=== PATIENT | female | born 1955 | race Caucasian/White ===

== ENCOUNTER 2017-11-18 16:14 | Inpatient (IN) | payer OTHER ==
[~2017-11-18] VITALS: Ht 160 cm; Wt 48.3 kg
--- NOTE | 2017-11-18 16:24 | ED GENERAL ADULT ---
History of Present Illness General Chief Complaint: Abdominal Pain/Flank Pain Stated Complaint: ABD. PAIN X 3HRS Source: patient Exam Limitations: no limitations Vital Signs & Intake/Output Vital Signs & Intake/Output Vital Signs Date Time Temp Pulse Resp B/P B/P Pulse O2 O2 Flow FiO2 Mean Ox Delivery Rate 11/18 2237 97.6 62 20 112/80 100 Nasal 2.0L Cannula 11/18 2140 98 21 179/91 98 Nasal Cannula 11/18 1946 66 18 154/97 97 Room Air 11/18 1850 98.3 88 17 189/92 98 11/18 1617 97.1 80 18 158/90 94 Room Air Room Air Allergies Coded Allergies: No Known Allergies (11/18/17) Reconcile Medications Alendronate Sodium 70 MG TABLET 1 TAB PO QMON OSTEOPOROSIS (Reported) in the morning, at least 30 minutes before the first food, beverage, or medication of the day Calcium Carbonate/Vitamin D3 (Calcium 500 + D Tablet) (Unknown Strength) TABLET (Unknown Dose) PO DAILY SUPPLEMENT (Reported) Triage Note: TRIAGE: 62 Y/O FEMALE PRESENTS C/O 12/22 "ALL OVER" ABDOMINAL PAIN. LAST NORMAL BOWEL MOVEMENT THIS MORNING. DENIES URINARY SYMPTOMS. * APPEARS UNCOMFORTABLE IN TRIAGE Triage Nurses Notes Reviewed? yes Onset: Morning Duration: hour(s): Timing: constant HPI: 62-year-old female with a history of osteoporosis presenting with severe abdominal pain 3 hours. Patient reports that she had gradual onset of upper abdominal pain that progressed to her entire abdomen, and significantly worse over the past hour. Endorses nausea with 2 episodes of vomiting. Denies fevers , chest pain, shortness of breath, diarrhea, constipation, bloody stools, melena , dysuria, hematuria. Prior abdominal surgeries include appendectomy and adhesion lysis for endometriosis. (Gladis Ocampo) Past History Travel History Traveled to [place] past 21 day No Medical History Any Pertinent Medical History? 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 No (Gladis Ocampo) Review of Systems Review of Systems Constitutional: Reports: no symptoms. EENTM: Reports: no symptoms. Respiratory: Reports: no symptoms. Cardiovascular: Reports: no symptoms. GI: Reports: see HPI. Genitourinary: Reports: no symptoms. Musculoskeletal: Reports: no symptoms. Skin: Reports: no symptoms. Neurological/Psychological: Reports: no symptoms. Hematologic/Endocrine: Reports: no symptoms. Immunologic/Allergic: Reports: no symptoms. All Other Systems: Reviewed and Negative (Gladis Ocampo) Physical Exam Physical Exam General Appearance: well developed/nourished, alert, awake, mild distress Head: atraumatic, normal appearance Eyes: Bilateral: normal appearance. Neck: normal inspection Respiratory: normal breath sounds, lungs clear Cardiovascular: regular rate/rhythm Gastrointestinal: normal bowel sounds, soft, guarding, tenderness (diffuse), no rebound Back: normal inspection Extremities: normal inspection Neurologic/Psych: awake, alert, oriented x 3, normal gait, normal mood/affect Skin: intact, normal color, warm/dry Core Measures ACS in differential dx? No CVA/TIA Diagnosis: No Sepsis Present: No Sepsis Focused Exam Completed? No (Gladis Ocampo) Progress Differential Diagnoses I considered the following diagnoses in my evaluation of the patient: Plan of Care: Orders Procedure Date/time Status Nothing by Mouth 11/19 B Active [id number] VIEWS 11/19 07 Active MAGNESIUM 11/19 0600 Active CBC WITHOUT DIFFERENTIAL 11/19 0600 Active BASIC ELECTROLYTES PLUS BUN&CR 11/19 0600 Active Weight 11/18 2221 Active Vital Signs 11/18 222 Active Teach/Educate 11/18 222 Active Pain Treatment and Response 11/18 222 Active Nutritional Intake, Monitor 11/18 222 Active Isolation 11/18 2221 Active Intake & Output 11/18 222 Active Patient Care Conference 11/18 222 Active Activity/Ambulation 11/18 222 Active Patient Data 11/18 193 Active Code Status 11/18 193 Active LACTIC ACID 11/18 1924 Complete Add-on Test (ER Only) 11/18 1703 Active EKG 11/18 1703 Active TROPONIN LEVEL 11/18 1635 Complete URINALYSIS 11/18 1624 Active LIPASE 11/18 1624 Complete LACTIC ACID 11/18 162 Complete HEPATIC FUNCTION PANEL 11/19 1623 Complete CBC WITHOUT DIFFERENTIAL 11/18 162 Complete BASIC METABOLIC PANEL 11/18 162 Complete Admit to inpatient 11/18 UNK Active VTE Mechanical Prophylaxis 11/18 UNK Active Vital Signs 11/18 UNK Active Intake & Output 11/18 UNK Active Current Medications Sig/Terell Start time Last Medication Dose Stop Time Status Admin Pantoprazole Sodium 40 MG DAILY 11/19 0900 AC (Protonix) Heparin Sodium 5,000 UNIT Q8 11/18 220 AC (Porcine) Dextrose/Sodium 1,000 ML Q8H 11/18 1944 AC Chloride (D5-Normal Saline) Hydromorphone HCl 0.5 MG Q2-3 HRS NEEDED.. 11/18 1944 AC 11/18 (Dilaudid) 2245 Ondansetron HCl 4 MG Q6P PRN 11/18 1944 AC 11/18 (Zofran) 224 Laboratory Tests 11/18/17 1918: Lactic Acid 0.7 11/18/17 163: Anion Gap 15, Estimated GFR > 60, BUN/Creatinine Ratio 36.7 H, Glucose 143 H, Lactic Acid 2.2 H, Calcium 10.4 H, Total Bilirubin 0.9, Direct Bilirubin 0.1, AST 24, ALT 33, Alkaline Phosphatase 41, Troponin I < 0.01, Total Protein 7.4, Albumin 5.0, Lipase 86, CBC w Diff NO MAN DIFF REQ, RBC 5.24, MCV 81.7, MCH 26.7 L, MCHC 32.7 L, RDW 13.4, MPV 6.9 L, Gran % 81.7 H, Lymphocytes % 12.1 L, Monocytes % 5.6, Eosinophils % 0.3, Basophils % 0.3, Absolute Granulocytes 10.4 H, Absolute Lymphocytes 1.5, Absolute Monocytes 0.7 H, Absolute Eosinophils 0, Absolute Basophils 0 EKG was nonischemic, troponin negative Labs show mild leukocytosis to 12, initial lactate 2.2, repeat lactate 0.7 CT scan IMPRESSION: 1. No evidence of free intraperitoneal air. 2. Multiple mildly dilated fluid-filled mid and distal small bowel loops. Diffuse circumferential thickening of the long segment of the distal ileal loop in the pelvis. Fecalization of the distal ileal loops. Transition zone is not definitely seen. The differential possibility include enteritis versus developing bowel obstruction. 3. Small free fluid in the pelvis. Discussed with surgery and patient was evaluated by the surgical PA. Will admit to surgical service. Initial ED EKG: NSR, nonspecific T-wave inversion in V2 (Gladis Ocampo) Departure Departure Disposition: STILL A PATIENT Condition: Stable Clinical Impression Primary Impression: Abdominal pain Secondary Impressions: Nausea and vomiting Referrals: Echo Hurst DO (PCP/Family) Departure Forms: Customer Survey General Discharge Information Admission Note Spoke With: Esteban TREVINO,Rajesh Vera Documentation of Exam: Documentation of any treatments & extenuating circumstances including Concerns Regarding Discharge (functional status, medication knowledge or non-compliance, living conditions, etc.) that warrant an admission rather than observation: [ Hemodynamic monitoring, IV fluids, IV pain medications, antiemetics, serial abdominal exams, surgery evaluation] (Gladis Ocampo) PA/MANAGING EDITOR Co-Sign Statement Statement: ED Attending supervision documentation- [X] I saw and evaluated the patient. I have also reviewed all the pertinent lab results and diagnostic results. I agree with the findings and the plan of care as documented in the PA's/MANAGING EDITOR's documentation. [X] I have reviewed the ED Record and agree with the PA's/MANAGING EDITOR's documentation. [] Additions or exceptions (if any) to the PAs/MANAGING EDITOR's note and plan are summarized below: [Patient to be admitted to the surgical service for possible early small bowel obstruction. Unsure if the patient will require surgery or not.] (Elvin TREVINO,Darryl Kelley) Critical Care Note Critical Care Note Critical Care Time: non-applicable (Gladis Ocampo)
[2017-11-18 16:43] LABS: ABSOLUTE BASOPHIL COUNT 0 /CUMM (0.0-0.2); ABSOLUTE EOSINOPHIL COUNT 0 /CUMM (0.0-0.7); ABSOLUTE GRANULOCYTE CT 10.4 /CUMM (1.4-6.5); ABSOLUTE LYMPH COUNT 1.5 /CUMM (1.2-3.4); ABSOLUTE MONOCYTE COUNT 0.7 /CUMM (0.10-0.60); BASOPHIL % 0.3 % (0.0-2.0); EOSINOPHIL % 0.3 % (0-5); GRANULOCYTE % 81.7 % (42.2-75.2); HEMATOCRIT 42.8 % (37-47); MEAN CORPUSCULAR HGB 26.7 PG (27.0-31.0); MEAN CORPUSCULAR HGB CONC 32.7 G/DL (33.0-37.0); MEAN CORPUSCULAR VOLUME 81.7 FL (81.0-99.0); MEAN PLATELET VOLUME 6.9 FL (7.4-10.4); PLATELET COUNT 386 /CUMM (130-400); RBC DISTRIBUTION WIDTH 13.4 % (11.5-14.5); RED BLOOD CELL CT 5.24 /CUMM (4.20-5.40); WHITE BLOOD CELL COUNT 12.7 /CUMM (4.8-10.8)
[2017-11-18] MEDS ORDERED: CALCIUM 500 +1 EAC5 PO (17:38)
[2017-11-18] MEDS ORDERED: ALENDRONATE SOD70 M2 PO (17:38)
--- NOTE | 2017-11-18 18:32 | CT SCAN REPORT ---
EXAMINATION: CT ABDOMEN AND PELVIS WITH CONTRAST CLINICAL INFORMATION: Severe diffuse abdominal pain. COMPARISON: None TECHNIQUE: Multidetector volumetric imaging was performed of the abdomen and pelvis following IV administration of 95 mL of Optiray 320 intravenous contrast. Sagittal and coronal reformatted images were obtained on the technologist's workstation. DLP: 250.78 mGy-cm FINDINGS: LUNG BASES: The visualized lung bases are unremarkable. LIVER, GALLBLADDER, AND BILIARY TREE: The liver is normal in size, shape and attenuation. There is mild periportal edema which is probably related to volume overload. A tiny low-attenuation is noted in hepatic segment 7 (series 2 image 15/86) which is too small to characterize however, statistically likely represents cyst or hemangioma. The gallbladder is mildly contracted however, there is no evidence of radiopaque gallstones, wall thickening, obvious pericholecystic inflammatory changes. No biliary ductal dilatation. PANCREAS: Unremarkable. SPLEEN: Unremarkable. ADRENAL GLANDS: Unremarkable. KIDNEYS AND URETERS: The kidneys are normal in size, shape, and attenuation. No hydronephrosis, hydroureter, or calculi seen. No perinephric stranding. BLADDER: Unremarkable. GASTROINTESTINAL TRACT: The stomach is largely decompressed. The proximal small bowel loops are decompressed and normal in caliber. [id number] small bowel loops are mildly dilated and fluid-filled. The maximum AP diameter of the nondilated small bowel loops is 2.6 cm. A long segment of the small bowel in the pelvis demonstrates circumferential bowel wall thickening. The terminal ileum and several distal ileal loops are normal in caliber. No definite transition zone is noted. Fecalization is noted in the multiple distal ileal loops. No evidence of intestinal pneumatosis. The cecum and ascending colon are normal in caliber. Remainder of the colon is decompressed. An appendix is not clearly identified. PERITONEAL CAVITY: No free intraperitoneal air. Small free fluid in the pelvis. ABDOMINAL WALL: No significant hernia is appreciated. LYMPH NODES: Normal. VASCULAR: Unremarkable. PELVIC VISCERA: Unremarkable CT appearance of the retroverted uterus. No adnexal mass. OSSEOUS STRUCTURES: Mild reverse S-shaped scoliosis of the lumbar spine. Multilevel degenerative changes are noted throughout the visualized spine with marginal osteophytes and facet arthropathy in lower lumbar spine. Moderate narrowing of the multiple intervertebral disc spaces. 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 IMPRESSION: 1. No evidence of free intraperitoneal air. 2. Multiple mildly dilated fluid-filled mid and distal small bowel loops. Diffuse circumferential thickening of the long segment of the distal ileal loop in the pelvis. Fecalization of the distal ileal loops. Transition zone is not definitely seen. The differential possibility include enteritis versus developing bowel obstruction. 3. Small free fluid in the pelvis. The findings were discussed with referring provider Ms. Gladis London, physician marketing operations assistant in the emergency room, on 11/18/2017 following initial review of this study.
--- NOTE | 2017-11-18 19:53 | History & Physical Pre-Op ---
Domenica Pulido 11/18/171939: General Information and HPI MD Statement: I have seen and personally examined GARY MORTENSEN and documented this H&P. The patient is a 62 year old F who presented with a patient stated chief complaint of [abdominal pain]. Source of Information: patient History of Present Illness: This 62 year old female with history appendectomy and open endometrial ablation presents with sudden onset abdominal pain that started this afternoon around 1pm. She reports she was outside doing work, and suddenly started to have abdominal pain. She had some associated nausea with a few episodes of vomiting. She forcefully attempted a bm, which was small, with no significant improvement of her symptoms. No prior history of abdominal pain or bowel obstructions. She denies dizziness. No shortness of breath. No chest pains. Denies dysuria. She is still reporting abdominal discomfort after receiving a total of 2mg iv dilaudid since she presented. Currently she denies nausea. She would prefer to avoid an ng tube if possible, but understands its role. Allergies/Medications Allergies: Coded Allergies: No Known Allergies (11/18/17) Home Med list Alendronate Sodium 70 MG TABLET 1 TAB PO QMON OSTEOPOROSIS (Reported) in the morning, at least 30 minutes before the first food, beverage, or medication of the day Calcium Carbonate/Vitamin D3 (Calcium 500 + D Tablet) (Unknown Strength) TABLET (Unknown Dose) PO DAILY SUPPLEMENT (Reported) Past History Medical History Neurological: NONE EENT: NONE Cardiovascular: NONE Respiratory: NONE Gastrointestinal: NONE Hepatic: NONE Renal: NONE Musculoskeletal: osteoporosis Psychiatric: NONE Endocrine: NONE Blood Disorders: NONE Cancer(s): NONE 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 Surgical History Pertinent Surgical History: appendectomy, open endometrial ablation with oophorectomy Past Family/Social History Psychosocial History Primary Language: Telugu Smoking Status: Unknown If Ever Smoked ETOH Use: occasional use Illicit Drug Use: denies illicit drug use Review of Systems Review of Systems: admits: abdominal pain, resolved nausea / vomiting denies: fevers / chills / sweats, dizziness, shortness of breath, chest pains, dysuria Exam & Diagnostic Data Last 24 Hrs of Vital Signs/I&O Vital Signs Date Time Temp Pulse Resp B/P B/P Pulse O2 O2 Flow FiO2 Mean Ox Delivery Rate 11/18 1850 98.3 88 17 189/92 98 11/18 1617 97.1 80 18 158/90 94 Room Air Room Air Physical Exam: General - alert & oriented x 3. uncomfortable. Skin - warm, dry, and smooth. no rashes noted. Lungs - clear bilaterally. no w/r/r. Cardiac - s1s2. reg. Abdomen - soft. no bowel sounds appreciated. surgical scars observed in her right lower quadrant and low transverse area. tenderness localized to right lower side with some guarding noted. not diffusely tender. nondistended. Extremities - warm bilaterally. no c/c/e. calves soft and nontender b/l. nvi. Neuro - speech smooth and coordinated. no focal deficits appreciated. no motor / sensory deficits. Last 24 Hrs of Labs/Herbert: Laboratory Tests 11/18/17 1635: Anion Gap 15, Estimated GFR > 60, BUN/Creatinine Ratio 36.7 H, Glucose 143 H, Lactic Acid 2.2 H, Calcium 10.4 H, Total Bilirubin 0.9, Direct Bilirubin 0.1, AST 24, ALT 33, Alkaline Phosphatase 41, Troponin I < 0.01, Total Protein 7.4, Albumin 5.0, Lipase 86, CBC w Diff NO MAN DIFF REQ, RBC 5.24, MCV 81.7, MCH 26.7 L, MCHC 32.7 L, RDW 13.4, MPV 6.9 L, Gran % 81.7 H, Lymphocytes % 12.1 L, Monocytes % 5.6, Eosinophils % 0.3, Basophils % 0.3, Absolute Granulocytes 10.4 H, Absolute Lymphocytes 1.5, Absolute Monocytes 0.7 H, Absolute Eosinophils 0, Absolute Basophils 0 Diagnostic Data Other Results EXAM TYPE: CAT - CT ABD & PELVIS W IV CONTRAST EXAMINATION: CT ABDOMEN AND PELVIS WITH CONTRAST CLINICAL INFORMATION: Severe diffuse abdominal pain. COMPARISON: None TECHNIQUE: Multidetector volumetric imaging was performed of the abdomen and pelvis following IV administration of 95 mL of Optiray 320 intravenous contrast. Sagittal and coronal reformatted images were obtained on the technologist's workstation. DLP: 250.78 mGy-cm FINDINGS: LUNG BASES: The visualized lung bases are unremarkable. LIVER, GALLBLADDER, AND BILIARY TREE: The liver is normal in size, shape and attenuation. There is mild periportal edema which is probably related to volume overload. A tiny low-attenuation is noted in hepatic segment 7 (series 2 image ) which is too small to characterize however, statistically likely represents cyst or hemangioma. The gallbladder is mildly contracted however, there is no evidence of radiopaque gallstones, wall thickening, obvious pericholecystic inflammatory changes. No biliary ductal dilatation. PANCREAS: Unremarkable. SPLEEN: Unremarkable. ADRENAL GLANDS: Unremarkable. KIDNEYS AND URETERS: The kidneys are normal in size, shape, and attenuation. No hydronephrosis, hydroureter, or calculi seen. No perinephric stranding. BLADDER: Unremarkable. GASTROINTESTINAL TRACT: The stomach is largely decompressed. The proximal small bowel loops are decompressed and normal in caliber. [id number] small bowel loops are mildly dilated and fluid-filled. The maximum AP diameter of the nondilated small bowel loops is 2.6 cm. A long segment of the small bowel in the pelvis demonstrates circumferential bowel wall thickening. The terminal ileum and several distal ileal loops are normal in caliber. No definite transition zone is noted. Fecalization is noted in the multiple distal ileal loops. No evidence of intestinal pneumatosis. The cecum and ascending colon are normal in caliber. Remainder of the colon is decompressed. An appendix is not clearly identified. PERITONEAL CAVITY: No free intraperitoneal air. Small free fluid in the pelvis. ABDOMINAL WALL: No significant hernia is appreciated. LYMPH NODES: Normal. VASCULAR: Unremarkable. PELVIC VISCERA: Unremarkable CT appearance of the retroverted uterus. No adnexal mass. OSSEOUS STRUCTURES: Mild reverse S-shaped scoliosis of the lumbar spine. Multilevel degenerative changes are noted throughout the visualized spine with marginal osteophytes and facet arthropathy in lower lumbar spine. Moderate narrowing of the multiple intervertebral disc spaces. 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 IMPRESSION: 1. No evidence of free intraperitoneal air. 2. Multiple mildly dilated fluid-filled mid and distal small bowel loops. Diffuse circumferential thickening of the long segment of the distal ileal loop in the pelvis. Fecalization of the distal ileal loops. Transition zone is not definitely seen. The differential possibility include enteritis versus developing bowel obstruction. 3. Small free fluid in the pelvis. The findings were discussed with referring provider Ms. Gladis London, physician title assistant in the emergency room, on 11/18/2017 following initial review of this study. DICTATED BY: Dylan De Paz MD DATE/TIME DICTATED:11/18/171752 NEGATIVE TURNER APPRENTICE:HOSSEIN DATE/TIME TRANSCRIBED:11/18/171752 Assessment/Plan Assessment/Plan: This 62 year old female with history of osteoporosis and 2 open abdominal surgeries in her distant past, presents with acute abdominal pain and CT scan findings supporting likely developing small bowel obstruction vs enteritis, with a mildly elevated lactic acid level in the setting of mild dehydration without other evidence concerning for sepsis will continue npo / ivf re-bolus 1L NS in ED f/u repeat lactic acid level iv dilaudid prn severe abdominal pain serial exams hep sc - dvt ppx f/u AM labs and abdominal multiview ng tube placement if she becomes nauseous or abdominal pain continues admit for conservative treatment of small bowel obstruction unless, with possible surgery if sbo doesn't improve / resolve discussed above with patient / / , who understand & agree with plan As Ranked By This Provider Problem List: 1. Dehydration 2. Small bowel obstruction Copies To: Echo Hurst DO, MD,[facility] 11/19/17 0817: Attending MD Review Statement Attending Statement Attending MD Statement: examined this patient, discuss w/resident/PA/TEXTILE FINISHER, reviewed images Attending Assessment/Plan: As per PA note. Patient presents for what appears to be first episode of intestinal obstruction presumed to be due to adhesive disease. By my interpretation of the CT there is possibly a threatened loop in the pelvis. Examination not concerning for ischemia. Mild lactic acidosis. Repeat after fluid bolus. NPO, ng if worsens, serial examination.
--- NOTE | 2017-11-18 19:55 | Admission Core Measures ---
Acute Coronary Syndrome (CM) ACS Core Measures Acute Coronary Syndrome Diagnosis No Congestive Heart Failure (NEW) CHF Core Measures Congestive Heart Failure Diagnosis No Cerebrovascular Accident CVA Core Measures CVA/TIA Diagnosis No Venous Thromboembolism VTE Core Bibiana (View Protocol) VTE Risk Factors Age>40 No Mechanical VTE Prophylaxis d/t N/A MechProphylax Ordered No VTE Pharm Prophylaxis d/t NA PharmProphylax ordered Problem List As ranked by this Provider includes Assessment & Plan 1. Small bowel obstruction 2. Dehydration HOME MEDS Home Med List Alendronate Sodium 70 MG TABLET 1 TAB PO QMON OSTEOPOROSIS (Reported) Calcium Carbonate/Vitamin D3 (Calcium 500 + D Tablet) (Unknown Strength) TABLET (Unknown Dose) PO DAILY SUPPLEMENT (Reported)
[2017-11-18 22:38] VITALS: BP 112/80
[2017-11-19 01:54] VITALS: BP 112/66
--- NOTE | 2017-11-19 02:22 | Event Note ---
Event Note Event Note: called by nurse for ongoing "10/10 pain" despite repeated doses of 0.5 iv dilaudid. patient still "writhing" in pain. slight nausea but not vomiting. "I feel worse" per patient. vitals stable abdomen with more diffuse tenderness, but localized to right lower side with some guarding ng tube placed with return of about 100mls of clear fluid will confirm placement of ng tube with xray repeat iv dilaudid now for ongoing pain f/u labs now (her repeat lactic acid level normalized in the ED after iv fluid boluses) updated
[2017-11-19 04:16] LABS: ABSOLUTE BASOPHIL COUNT 0 /CUMM (0.0-0.2); ABSOLUTE EOSINOPHIL COUNT 0 /CUMM (0.0-0.7); ABSOLUTE GRANULOCYTE CT 18.5 /CUMM (1.4-6.5); ABSOLUTE LYMPH COUNT 0.8 /CUMM (1.2-3.4); ABSOLUTE MONOCYTE COUNT 1.3 /CUMM (0.10-0.60); BASOPHIL % 0 % (0.0-2.0); EOSINOPHIL % 0 % (0-5); MEAN CORPUSCULAR HGB CONC 33.1 G/DL (33.0-37.0); MEAN CORPUSCULAR VOLUME 81.4 FL (81.0-99.0); PLATELET COUNT 419 /CUMM (130-400); RBC DISTRIBUTION WIDTH 13.6 % (11.5-14.5); RED BLOOD CELL CT 6.24 /CUMM (4.20-5.40)
[2017-11-19 04:17] LABS: WHITE BLOOD CELL COUNT 20.6 /CUMM (4.8-10.8)
[2017-11-19 04:18] LABS: HEMATOCRIT 50.8 % (37-47); PT 11.6 SEC (9.4-12.5)
[2017-11-19 06:32] VITALS: BP 126/78
--- NOTE | 2017-11-19 07:32 | PN- General Surgery ---
See Addendum Subjective Subjective: pain all night, somewhat lessened w pain meds but quickly returns. feels no better, abd pain mostly right lower but now feels "below my ribs". no n/v, ngt in place. "cant get comfortable". no flatus/bm. bloated Objective Vital Signs and I&Os Vital Signs Date Time Temp Pulse Resp B/P B/P Pulse O2 O2 Flow FiO2 Mean Ox Delivery Rate 11/19 0632 98.2 97 20 126/78 96 Room Air 11/19 0154 97.7 67 16 112/66 99 Room Air 11/18 2238 97.6 62 20 112/80 100 Nasal 2.0L Cannula 11/18 2140 98 21 179/91 98 Nasal Cannula 11/18 1946 66 18 154/97 97 Room Air 11/18 1850 98.3 88 17 189/92 98 11/18 1617 97.1 80 18 158/90 94 Room Air Room Air Intake & Output 11/19 0811/19 0000 11/18 1600 11/18 0800 11/18 0000 11/17 1600 Intake Total 0 0 Output Total 250 Balance -250 0 Intake, Oral 0 0 Number 0 0 Bowel Movements Output, 250 Gastric Drainage Patient 112 lb 109 lb Weight Weight Bed scale Reported by Patient Measurement Method Physical Exam: gen- nad card- s1s2 tachy pulm- ctab abd- dist, tympanic, no bs, very ttp r mid-lower, +guarding Results Last 48 Hours of Labs: Laboratory Tests 11/19 11/19 11/18 0600 0400 1918 Chemistry Sodium (137 - 145 mmol/L) 136 L Potassium (3.5 - 5.1 mmol/L) 4.7 Chloride (98 - 107 mmol/L) 105 Carbon Dioxide (22 - 30 mmol/L) 18 L Anion Gap (5 - 16) 13 BUN (7 - 17 mg/dL) 20 H Creatinine (0.5 - 1.0 mg/dL) 0.5 Estimated GFR (>60 ml/min) > 60 BUN/Creatinine Ratio (7 - 25 %) 40.0 H Lactic Acid (0.7 - 2.1 mmol/L) 0.7 Magnesium (1.6 - 2.3 mg/dL) Cancelled 1.9 Coagulation PT (9.4 - 12.5 SEC) 11.6 INR (0.90 - 1.19) 1.06 Hematology CBC w Diff Cancelled MAN DIFF ORDERED WBC (4.8 - 10.8 /CUMM) Cancelled 20.6 H RBC (4.20 - 5.40 /CUMM) Cancelled 6.24 H Hgb (12.0 - 16.0 G/DL) Cancelled 16.8 H Hct (37 - 47 %) Cancelled 50.8 H MCV (81.0 - 99.0 FL) Cancelled 81.4 MCH (27.0 - 31.0 PG) Cancelled 27.0 MCHC (33.0 - 37.0 G/DL) Cancelled 33.1 RDW (11.5 - 14.5 %) Cancelled 13.6 Plt Count (130 - 400 /CUMM) Cancelled 419 H MPV (7.4 - 10.4 FL) Cancelled 7.0 L Gran % (42.2 - 75.2 %) 90.0 H Lymphocytes % (20.5 - 51.1 %) 3.8 L Monocytes % (1.7 - 9.3 %) 6.2 Eosinophils % (0 - 5 %) 0 Basophils % (0.0 - 2.0 %) 0 Absolute Granulocytes (1.4 - 6.5 /CUMM) 18.5 H Segmented Neutrophils (42.2 - 75.2 %) 89 H Band Neutrophils (0.0 - 5.0 %) 2 Absolute Lymphocytes (1.2 - 3.4 /CUMM) 0.8 L Lymphocytes (20.5 - 51.1 %) 3 L Monocytes (1.7 - 9.3 %) 5 Absolute Monocytes (0.10 - 0.60 /CUMM) 1.3 H Absolute Eosinophils (0.0 - 0.7 /CUMM) 0 Absolute Basophils (0.0 - 0.2 /CUMM) 0 Metamyelocytes (0.0 - 1.0 %) 1 Platelet Estimate (ADEQUATE) ADEQUATE Normocytic RBCs VERIFIED Normochromic RBCs VERIFIED Other Body Source Fld Total RBCs Counted (%) 100 07/07 07 1635 1624 Chemistry Sodium (137 - 145 mmol/L) 136 L Potassium (3.5 - 5.1 mmol/L) 3.8 Chloride (98 - 107 mmol/L) 99 Carbon Dioxide (22 - 30 mmol/L) 22 Anion Gap (5 - 16) 15 BUN (7 - 17 mg/dL) 22 H Creatinine (0.5 - 1.0 mg/dL) 0.6 Estimated GFR (>60 ml/min) > 60 BUN/Creatinine Ratio (7 - 25 %) 36.7 H Glucose (65 - 99 mg/dL) 143 H Lactic Acid (0.7 - 2.1 mmol/L) 2.2 H Calcium (8.4 - 10.2 mg/dL) 10.4 H Total Bilirubin (0.2 - 1.3 mg/dL) 0.9 Direct Bilirubin (< 0.4 mg/dL) 0.1 AST (14 - 36 U/L) 24 ALT (9 - 52 U/L) 33 Alkaline Phosphatase (<127 U/L) 41 Troponin I (< 0.11 ng/ml) < 0.01 Total Protein (6.3 - 8.2 g/dL) 7.4 Albumin (3.5 - 5.0 g/dL) 5.0 Lipase (23 - 300 U/L) 86 Hematology CBC w Diff NO MAN DIFF REQ WBC (4.8 - 10.8 /CUMM) 12.7 H RBC (4.20 - 5.40 /CUMM) 5.24 Hgb (12.0 - 16.0 G/DL) 14.0 Hct (37 - 47 %) 42.8 MCV (81.0 - 99.0 FL) 81.7 MCH (27.0 - 31.0 PG) 26.7 L MCHC (33.0 - 37.0 G/DL) 32.7 L RDW (11.5 - 14.5 %) 13.4 Plt Count (130 - 400 /CUMM) 386 MPV (7.4 - 10.4 FL) 6.9 L Gran % (42.2 - 75.2 %) 81.7 H Lymphocytes % (20.5 - 51.1 %) 12.1 L Monocytes % (1.7 - 9.3 %) 5.6 Eosinophils % (0 - 5 %) 0.3 Basophils % (0.0 - 2.0 %) 0.3 Absolute Granulocytes (1.4 - 6.5 /CUMM) 10.4 H Absolute Lymphocytes (1.2 - 3.4 /CUMM) 1.5 Absolute Monocytes (0.10 - 0.60 /CUMM) 0.7 H Absolute Eosinophils (0.0 - 0.7 /CUMM) 0 Absolute Basophils (0.0 - 0.2 /CUMM) 0 Urines Urine Color Cancelled Urine Clarity Cancelled Urine pH Cancelled Ur Specific [place] Cancelled Urine Protein Cancelled Urine Ketones Cancelled Urine Nitrite Cancelled Urine Bilirubin Cancelled Urine Urobilinogen Cancelled Ur Leukocyte Esterase Cancelled Ur Microscopic Cancelled Urine Hemoglobin Cancelled Urine Glucose Cancelled Assessment/Plan Assessment/Plan A- 62F abdominal pain, distension, leukocytosis- worsening. P- dw Dr. Orellana- plan for operative exploration. pain med now Core Measures Venous Thromboembolism VTE Risk Factors Age>40 No Mechanical VTE Prophylaxis d/t N/A MechProphylax Ordered No VTE Pharm Prophylaxis d/t NA PharmProphylax ordered
[2017-11-19 08:43] VITALS: BP 118/80
--- NOTE | 2017-11-19 11:31 | Operative Report ---
Operative/Inv Procedure Report Surgery Date: 11/19/17 Name of Procedure: Laparoscopic lysis of adhesions Conversion to open for small bowel resection Pre-Operative Diagnosis: Intestinal obstruction Post-Operative Diagnosis: Intestinal obstruction with gangrene Estimated Blood Loss: less than 50ml Surgeon/[place] Former Machine Operator: Esteban TREVINO,Rajesh SWEENEY Anesthesia: general endotracheal tube Specimens: 3 feet ileum Operative/Procedure Note Note: After consent patient brought to the operating room laid supine. Gen. anesthesia was obtained and her abdomen was prepped and draped. The skin above the umbilicus was infiltrated local anesthesia a curvilinear incision made sharply. We dissected to the fascia and grasped with Pavel's. A fasciotomy created sharply and stay sutures placed. A blunt [place] port was placed and pneumoperitoneum was achieved. 2, 5 mm ports were placed in the left lower quadrant after local anesthesia was instilled under direct vision the camera. The abdomen was explored. There were adhesions of omentum to the anterior midline which precluded complete review. There were some ischemic-looking small bowel loops in the right lower quadrant. We began by taking down the adhesions in the midline with cautery. She was then placed in Trendelenburg and rotated towards the left. There was purple discoloration of large loop of small bowel. We could not identify the cecum very well due to the tense and distended nature of the small bowel loops. I found an internal hernia along the right lower quadrant sidewall of the pelvis. It was composed of adhesions to a small bowel loop. These were taken down with blunt and cautery dissection. Dissection of this completely released the strangulated loop. I was then able to run the small bowel from the terminal ileum to proximal where the obstruction point occurred. There was purple discoloration of a large segment of small bowel. There was some reddish discoloration distally. We waited 10 minutes for reperfusion to occur. After 10 minutes much of the bowel had regained perfusion however there remained a segment of purple discoloration of the ileum that did not appear to be viable. We therefore converted to a mini laparotomy through a low midline incision. Dissection was taken down to the fascia with cautery and the fascia incised. The small bowel was then brought up through the wound. Points of transection of small bowel were then chosen and the mesentery cauterized to create a window proximally and distally. The bowel was transected with SABINE stapler. The mesentery was taken with LigaSure device. Specimen was passed off the field. The small bowel was then lined up side to side and attached temporarily with 3-0 silk sutures. Enterotomies were created in a side -to-side anastomosis made with SABINE stapler. The common enterotomy was closed with a SABINE stapler. Crotch and the anastomosis was reinforced with 3-0 silk. Mesenteric defect was closed with 3-0 silk. Hemostasis achieved cautery. The bowel was replaced the perineal cavity. The perineal cavity was suction irrigated with normal saline. The fascia was enclosed with a running 0 Maxon suture. Midline skin was closed with michelle. The port site fascia was closed with 0 Vicryl. Port sites were closed with 4-0 Vicryl. Steri-Strips and sterile dressing applied. Sponge and needle counts are correct CC: Echo Hurst DO
[2017-11-19 12:50] VITALS: BP 128/66
--- NOTE | 2017-11-19 15:12 | PN- General Surgery ---
Subjective Subjective: POC feeling much better, still w abd pain but nothing like her preop pain. no oob, no postop void. no n/v. no bowel fxn. Objective Vital Signs and I&Os Vital Signs Date Time Temp Pulse Resp B/P B/P Pulse O2 O2 Flow FiO2 Mean Ox Delivery Rate 11/19 1250 97.6 73 18 128/66 98 Room Air 11/19 0843 97.7 88 20 118/80 96 Room Air 11/19 0632 98.2 97 20 126/78 96 Room Air 11/19 0154 97.7 67 16 112/66 99 Room Air 11/18 2238 97.6 62 20 112/80 100 Nasal 2.0L Cannula 11/18 2140 98 21 179/91 98 Nasal Cannula 11/18 1946 66 18 154/97 97 Room Air 11/18 1850 98.3 88 17 189/92 98 11/18 1617 97.1 80 18 158/90 94 Room Air Room Air Intake & Output 11/19 1600 11/19 0800 / 0000 11/18 1600 11/18 0800 11/18 0000 Intake Total 0 0 Output Total 250 Balance -250 0 Intake, Oral 0 0 Number 0 0 Bowel Movements Output, 250 Gastric Drainage Patient 112 lb 109 lb Weight Weight Bed scale Reported by Patient Measurement Method Physical Exam: gen- nad card-s1s2 rrr pulm- no audible wheeze abd- soft, distended, incisions dresses- cdi. ext- calves soft nt bl Assessment/Plan Assessment/Plan A- POD0 sp laparoscopic PINA, SB rsxn for SBO causing gangrenous bowel, currently stable with appropriate postop pain. P- abx x23hr hep sq, alps, oob, ambulate prn pain meds npo, ngt, await for bowel fxn return ivf. strict i&os. due to void postop am labs will dw attending Core Measures Venous Thromboembolism VTE Risk Factors Age>40 No Mechanical VTE Prophylaxis d/t N/A MechProphylax Ordered No VTE Pharm Prophylaxis d/t NA PharmProphylax ordered
[2017-11-19 18:08] VITALS: BP 118/70
[2017-11-19 22:04] VITALS: BP 122/70
[2017-11-20 06:36] VITALS: BP 126/60
--- NOTE | 2017-11-20 07:03 | PN- Student ---
Arnaud Mahan 11/20/17 0655: Subjective Subjective: 2-3/10 abdominal pain, worse with movement, but better than before surgery. No nausea, no vomiting. No bowel movement, no flatus. Making urine. OOB to bathroom only. No chest pain, no shortness of breath, no calf pain. Objective Objective: Vitals: Temp: 99.4 Pulse: 84 Respiratory Rate: 18 BP: 126/60 Pulse ox: 97 Room air I/O's I- 1000 IV 8hr/4225 IV 24 hours O- 400 Urine 8hr/900 urine 24hr, 80 NGt 8hr/250 NGt 24hr Imaging: none Physical Exam: General: no acute distress, alert and oriented Pulm: clear to auscultation bilaterally Cardio: s1,s2,RRR Abdomen: softly distended, no bowel sounds, mild tenderness in RLQ and around incisions. dressings are clean dry and intact. NGT in place. Extremities: calves soft and nontender bilateraly. DP pulses 2+. Results Results: Laboratory Tests 11/19/17 0603: Urine Color Cancelled, Urine Clarity Cancelled, Urine pH Cancelled, Ur Specific [place] Cancelled, Urine Protein Cancelled, Urine Ketones Cancelled, Urine Nitrite Cancelled, Urine Bilirubin Cancelled, Urine Urobilinogen Cancelled, Ur Leukocyte Esterase Cancelled, Ur Microscopic Cancelled, Urine Hemoglobin Cancelled, Urine Glucose Cancelled 11/19/17 0600: Magnesium Cancelled, CBC w Diff Cancelled, WBC Cancelled, RBC Cancelled, Hgb Cancelled, Hct Cancelled, MCV Cancelled, MCH Cancelled, MCHC Cancelled, RDW Cancelled, Plt Count Cancelled, MPV Cancelled 11/19/17 0400: Anion Gap 13, Estimated GFR > 60, BUN/Creatinine Ratio 40.0 H, Magnesium 1.9, PT 11.6, INR 1.06, CBC w Diff MAN DIFF ORDERED, RBC 6.24 H, MCV 81.4, MCH 27.0, MCHC 33.1, RDW 13.6, MPV 7.0 L, Gran % 90.0 H, Lymphocytes % 3.8 L, Monocytes % 6.2, Eosinophils % 0, Basophils % 0, Absolute Granulocytes 18.5 H, Segmented Neutrophils 89 H, Band Neutrophils 2, Absolute Lymphocytes 0.8 L, Lymphocytes 3 L, Monocytes 5, Absolute Monocytes 1.3 H, Absolute Eosinophils 0, Absolute Basophils 0, Metamyelocytes 1, Platelet Estimate ADEQUATE, Normocytic RBCs VERIFIED, Normochromic RBCs VERIFIED, Fld Total RBCs Counted 100 11/18/17 1918: Lactic Acid 0.7 11/18/17 1635: Anion Gap 15, Estimated GFR > 60, BUN/Creatinine Ratio 36.7 H, Glucose 143 H, Lactic Acid 2.2 H, Calcium 10.4 H, Total Bilirubin 0.9, Direct Bilirubin 0.1, AST 24, ALT 33, Alkaline Phosphatase 41, Troponin I < 0.01, Total Protein 7.4, Albumin 5.0, Lipase 86, CBC w Diff NO MAN DIFF REQ, RBC 5.24, MCV 81.7, MCH 26.7 L, MCHC 32.7 L, RDW 13.4, MPV 6.9 L, Gran % 81.7 H, Lymphocytes % 12.1 L, Monocytes % 5.6, Eosinophils % 0.3, Basophils % 0.3, Absolute Granulocytes 10.4 H, Absolute Lymphocytes 1.5, Absolute Monocytes 0.7 H, Absolute Eosinophils 0, Absolute Basophils 0 11/18/17 1624: Urine Color Cancelled, Urine Clarity Cancelled, Urine pH Cancelled, Ur Specific [place] Cancelled, Urine Protein Cancelled, Urine Ketones Cancelled, Urine Nitrite Cancelled, Urine Bilirubin Cancelled, Urine Urobilinogen Cancelled, Ur Leukocyte Esterase Cancelled, Ur Microscopic Cancelled, Urine Hemoglobin Cancelled, Urine Glucose Cancelled Assessment/Plan Assessment: 62 year old female Hospital day 2 sbo, POD 1 small bowel resection and lysis of adhesions doing well with improved pain. Awaiting bowel function. Plan: NPO until bowel function returns IV fluids NG tube Protonix Acetaminophen, dilaudid prn pain zofran prn nausea Heparin, ALPS DVT prophylaxis Encourage OOB Incentive spirometry discuss with preceptor Bing Wu 11/20/17 1324: Assessment/Plan Assessment: update: flatus passed per patient. No other changes. Agree with student assessment/plan.
--- NOTE | 2017-11-20 08:04 | PN- General Surgery ---
See Addendum Subjective Subjective: No acute overnight events reported. Patient resting comfortably in bed at the present time. States that her post surgical pain abdominal pain is far less than preoperative discomfort. Reports passing a small amount of flatus x1 episode. No nausea or vomitting. Voiding. No complaints of chest pain, shortness of breath or difficulty breathing. NGT causing some throat discomfort. Objective Vital Signs and I&Os Vital Signs Date Time Temp Pulse Resp B/P B/P Pulse O2 O2 Flow FiO2 Mean Ox Delivery Rate 11/20 0536 99.4 84 18 126/60 97 Room Air 11/19 2204 99.7 88 18 122/70 95 Room Air 11/19 1808 99.5 88 18 118/70 97 Room Air 11/19 1250 97.6 73 18 128/66 98 Room Air 11/19 0843 97.7 88 20 118/80 96 Room Air Intake & Output 11/20 1600 / 0800 07/09 0000 /08 1600 /08 0800 /08 0000 Intake Total 1000 3225 0 0 Output Total 400 500 250 Balance 600 2725 -250 0 Intake, IV 1000 3225 Intake, Oral 0 0 0 Number 0 0 0 Bowel Movements Output, 0 250 Gastric Drainage Output, Urine 400 500 Patient 112 lb 109 lb Weight Weight Bed scale Reported by Patient Measurement Method Physical Exam: General: Alert and oriented x3, no acute distress Cards: RRR, s1s2, no peripheral edema Pulm: CTA bilaterally, non-labored respiratory effort Abdomen: Softly distended, no bs ausculatated. Samantha-incisional tenderness, appropriate. No peritoneal signs. NGT in place with scant output documented overnight. Surgical dressings dry and intact, no surrounding erythema Extremities: Moves all extremities, NV staus intact, bilateral calves soft and non-tender. Assessment/Plan Assessment/Plan This is a 62 year old female, POD 1, s/p elap with bowel resection for ischemia -continue ngt/npo, await bowel function -continue ivf, D5 1/2NS at 125/hr -oob encouraged -incentive spriometry encouraged -hep sub q/alps for dvt ppx -chloraseptic for throat pain Will discuss plan of care with Dr. Orellana Core Measures Venous Thromboembolism VTE Risk Factors Age>40 No Mechanical VTE Prophylaxis d/t N/A MechProphylax Ordered No VTE Pharm Prophylaxis d/t NA PharmProphylax ordered
[2017-11-20 09:58] LABS: ABSOLUTE BASOPHIL COUNT 0 /CUMM (0.0-0.2); ABSOLUTE EOSINOPHIL COUNT 0 /CUMM (0.0-0.7); ABSOLUTE MONOCYTE COUNT 1.4 /CUMM (0.10-0.60); BASOPHIL % 0 % (0.0-2.0); EOSINOPHIL % 0 % (0-5); MEAN CORPUSCULAR VOLUME 81.9 FL (81.0-99.0)
[2017-11-20 11:00] LABS: ABSOLUTE GRANULOCYTE CT 10.9 /CUMM (1.4-6.5); ABSOLUTE LYMPH COUNT 1.5 /CUMM (1.2-3.4); MEAN CORPUSCULAR HGB 27.3 PG (27.0-31.0); MEAN CORPUSCULAR HGB CONC 33.3 G/DL (33.0-37.0); MEAN PLATELET VOLUME 7.7 FL (7.4-10.4); PLATELET COUNT 286 /CUMM (130-400); RBC DISTRIBUTION WIDTH 13.5 % (11.5-14.5); WHITE BLOOD CELL COUNT 13.9 /CUMM (4.8-10.8)
[2017-11-20 11:05] LABS: HEMATOCRIT 35.3 % (37-47); RED BLOOD CELL CT 4.31 /CUMM (4.20-5.40)
[2017-11-20 14:46] VITALS: BP 112/64
[2017-11-20 21:59] VITALS: BP 130/70
[2017-11-21 06:20] VITALS: BP 126/68
[2017-11-21 08:31] LABS: ABSOLUTE BASOPHIL COUNT 0 /CUMM (0.0-0.2); ABSOLUTE EOSINOPHIL COUNT 0 /CUMM (0.0-0.7); ABSOLUTE GRANULOCYTE CT 7.1 /CUMM (1.4-6.5); ABSOLUTE LYMPH COUNT 1.5 /CUMM (1.2-3.4); ABSOLUTE MONOCYTE COUNT 0.7 /CUMM (0.10-0.60); BASOPHIL % 0.2 % (0.0-2.0); EOSINOPHIL % 0.1 % (0-5); GRANULOCYTE % 76.4 % (42.2-75.2); HEMATOCRIT 32.3 % (37-47); MEAN CORPUSCULAR HGB 27.4 PG (27.0-31.0); MEAN CORPUSCULAR HGB CONC 33.2 G/DL (33.0-37.0); MEAN CORPUSCULAR VOLUME 82.5 FL (81.0-99.0); MEAN PLATELET VOLUME 7.5 FL (7.4-10.4); PLATELET COUNT 227 /CUMM (130-400); RBC DISTRIBUTION WIDTH 13.9 % (11.5-14.5); RED BLOOD CELL CT 3.91 /CUMM (4.20-5.40); WHITE BLOOD CELL COUNT 9.3 /CUMM (4.8-10.8)
--- NOTE | 2017-11-21 09:05 | PN- General Surgery ---
Surgical Brief Attending Note Brief Attending Note: Patient doing well. liquid stool today. thirsty. low grade temp. abd mildy distended. slow clears. ambulate.
[2017-11-21 14:49] VITALS: BP 132/70
[2017-11-21 21:29] VITALS: BP 130/66
[2017-11-22 06:18] VITALS: BP 114/70
--- NOTE | 2017-11-22 07:22 | PN- General Surgery ---
See Addendum Subjective Subjective: Patient reports abdominal pain has significantly improved since surgery. She reports distenstion has improved. Shes tolerating clears without nausea or vomiting or belching. She reports 4 loose bm overnight. She is up ambulating oob. She offers no other complaints. Objective Vital Signs and I&Os Vital Signs Date Time Temp Pulse Resp B/P B/P Pulse O2 O2 Flow FiO2 Mean Ox Delivery Rate 11/22 617 98.7 71 20 114/70 98 Room Air 11/21 2128 99.0 72 18 130/66 99 11/21 1449 98.9 78 18 132/70 97 Room Air Intake & Output 11/22 0811/22 0000 11/21 1600 11/21 0000 11/20 1600 Intake Total 700 5116 980 1270 960 1000 Output Total 651 600 400 250 Balance 700 1005 -26 600 560 750 Intake, IV 600 741 331 2098 500 1000 Intake, Oral 100 480 200 460 0 Number 3 1 0 Bowel Movements Output, 50 Gastric Drainage Output, Stool 1 Output, Urine 650 600 400 200 Patient 112 lb Weight Physical Exam: Gen - nad Cardiac - S1S2 noted Lungs - CTAB Abd - softly distended, midline dressing c/d/i, incision closed with michelle healing well no signs of infection, + bs, tympanic and appropriately tender phoebe -incisionally, no rebound or guarding Ext - no edema or calf tenderness Current Medications: Current Medications Sig/Terell Start time Last Medication Dose Route Stop Time Status Admin Acetaminophen 1,000 MG .STK-MED ONE 11/21 2124 GA IV 11/21 212 Acetaminophen 1,000 MG .STK-MED ONE 11/21 1550 DC IV 11/21 1551 Acetaminophen 1,000 MG Q6P PRN 11/19 1145 11/21 N/A 1 UNIT IV 2133 Heparin Sodium 5,000 UNIT Q8 11/18 2200 11/22 (Porcine) SC 0541 Hydromorphone HCl 0.5 MG Q2-3 HRS NEEDED.. 11/18 1944 11/19 IV 0541 Ondansetron HCl 4 MG Q6P PRN 11/18 1944 AC 11/18 IV 2245 Pantoprazole Sodium 40 MG DAILY 11/19 09 11/21 IV 0928 Patient Medication 1 ED ONE ONE 07/10 1715 GA 11/21 Teaching ED 11/21 171 2041 Phenol 2 SPRAY Q2P PRN 11/19 2100 AC 11/20 EXT 0847 Potassium Chloride 40 MEQ Q13H 11/21 0915 AC 11/21 Dextrose/Sodium 1,000 ML IV 2134 Chloride Potassium Chloride 40 MEQ Q8H 11/20 1115 DC 11/21 Dextrose/Sodium 1,000 ML IV 0634 Chloride Results Last 48 Hours of Labs: Laboratory Tests 11/22 11/21 0635 0642 Chemistry Sodium (137 - 145 mmol/L) Pending 139 Potassium (3.5 - 5.1 mmol/L) Pending 4.1 Chloride (98 - 107 mmol/L) Pending 110 H Carbon Dioxide (22 - 30 mmol/L) Pending 24 Anion Gap (5 - 16) Pending 5 BUN (7 - 17 mg/dL) Pending 7 Creatinine (0.5 - 1.0 mg/dL) Pending 0.5 Estimated GFR (>60 ml/min) > 60 BUN/Creatinine Ratio (7 - 25 %) Pending 14.0 Phosphorus (2.5 - 4.5 mg/dL) Pending 1.2 L Magnesium (1.6 - 2.3 mg/dL) Pending 2.1 Hematology CBC w Diff NO MAN DIFF REQ WBC (4.8 - 10.8 /CUMM) 9.3 RBC (4.20 - 5.40 /CUMM) 3.91 L Hgb (12.0 - 16.0 G/DL) 10.7 L Hct (37 - 47 %) 32.3 L MCV (81.0 - 99.0 FL) 82.5 MCH (27.0 - 31.0 PG) 27.4 MCHC (33.0 - 37.0 G/DL) 33.2 RDW (11.5 - 14.5 %) 13.9 Plt Count (130 - 400 /CUMM) 227 MPV (7.4 - 10.4 FL) 7.5 Gran % (42.2 - 75.2 %) 76.4 H Lymphocytes % (20.5 - 51.1 %) 16.0 L Monocytes % (1.7 - 9.3 %) 7.3 Eosinophils % (0 - 5 %) 0.1 Basophils % (0.0 - 2.0 %) 0.2 Absolute Granulocytes (1.4 - 6.5 /CUMM) 7.1 H Absolute Lymphocytes (1.2 - 3.4 /CUMM) 1.5 Absolute Monocytes (0.10 - 0.60 /CUMM) 0.7 H Absolute Eosinophils (0.0 - 0.7 /CUMM) 0 Absolute Basophils (0.0 - 0.2 /CUMM) 0 / 0814 Chemistry Sodium (137 - 145 mmol/L) 139 Potassium (3.5 - 5.1 mmol/L) 3.5 Chloride (98 - 107 mmol/L) 109 H Carbon Dioxide (22 - 30 mmol/L) 24 Anion Gap (5 - 16) 6 BUN (7 - 17 mg/dL) 10 Creatinine (0.5 - 1.0 mg/dL) 0.6 Estimated GFR (>60 ml/min) > 60 BUN/Creatinine Ratio (7 - 25 %) 16.7 Phosphorus (2.5 - 4.5 mg/dL) 1.8 L Magnesium (1.6 - 2.3 mg/dL) 1.9 Hematology CBC w Diff NO MAN DIFF REQ WBC (4.8 - 10.8 /CUMM) 13.9 H RBC (4.20 - 5.40 /CUMM) 4.31 Hgb (12.0 - 16.0 G/DL) 11.8 L Hct (37 - 47 %) 35.3 L MCV (81.0 - 99.0 FL) 81.9 MCH (27.0 - 31.0 PG) 27.3 MCHC (33.0 - 37.0 G/DL) 33.3 RDW (11.5 - 14.5 %) 13.5 Plt Count (130 - 400 /CUMM) 286 MPV (7.4 - 10.4 FL) 7.7 Gran % (42.2 - 75.2 %) 79.0 H Lymphocytes % (20.5 - 51.1 %) 11.0 L Monocytes % (1.7 - 9.3 %) 10.0 H Eosinophils % (0 - 5 %) 0 Basophils % (0.0 - 2.0 %) 0 Absolute Granulocytes (1.4 - 6.5 /CUMM) 10.9 H Absolute Lymphocytes (1.2 - 3.4 /CUMM) 1.5 Absolute Monocytes (0.10 - 0.60 /CUMM) 1.4 H Absolute Eosinophils (0.0 - 0.7 /CUMM) 0 Absolute Basophils (0.0 - 0.2 /CUMM) 0 Assessment/Plan Assessment/Plan 62 F POD 3 s/p ex lap w/ sb rxn due to bowel ischemia with improved abdominal distention and return of bowel function Advance to fulls, low residue possibly later today Cont pain regimen prn GI/DVT ppx on board F/u chem Encourage oob ambulation Anticipate d/c w/in 24-48 hours D/w Dr. Orellana Core Measures Venous Thromboembolism VTE Risk Factors Age>40 No Mechanical VTE Prophylaxis d/t N/A MechProphylax Ordered No VTE Pharm Prophylaxis d/t NA PharmProphylax ordered
--- NOTE | 2017-11-22 08:11 | Patient Discharge Instructions ---
Discharge Instructions General Discharge Information You were seen/treated for: Intestinal obstruction You had these procedures: Laparoscopic lysis of adhesions Conversion to open for small bowel resection on 11/19/17 Watch for these problems: Increased pain or distenstion, nausea, vomiting, fever > 101.3, redness, swelling drainage from incisions Call Surgeon to remove: Cristine No bath, but you may shower: Yes Other wound care: Keep incisions clean and dry No baths/swimming/hot tubs until follow up apt Diet Continue normal diet: No Recommended Diet: Low Residue Activity Activity Self Limited: Yes Pounds, do NOT lift more than: 10 Other activity limits: No heavy lifting or strenous activity x 4 weeks Acute Coronary Syndrome Inclusion Criteria At DC or during hospital stay patient has or had the following: ACS DIAGNOSIS No Discharge Core Measures Meds if any: Prescribed or Continued at Discharge Meds if any: NOT Prescribed or Continued at Discharge Congestive Heart Failure Inclusion Criteria At DC or during hospital stay patient has or had the following: CHF DIAGNOSIS No Discharge Core Measures Meds if any: Prescribed or Continued at Discharge Meds if any: NOT Prescribed or Continued at Discharge Cerebrovascular accident Inclusion Criteria At DC or during hospital stay patient has or had the following: CVA/TIA Diagnosis No Discharge Core Measures Meds if any: Prescribed or Continued at Discharge Meds if any: NOT Prescribed or Continued at Discharge Venous thromboembolism Inclusion Criteria VTE Diagnosis No VTE Type NONE VTE Confirmed by (Test) NONE Discharge Core Measures - Per Current guidelines, there needs to be overlap - treatment for the first 5 days of Warfarin therapy. - If discharged on Warfarin prior to 5 days of - overlap therapy, the patient will need to be - assessed for post discharge needs including - *Post discharge parental anticoagulation - *Warfarin and/or parental anticoagulation education - *Follow up date to check INR post discharge At least 5 days overlap therapy as Inpatient No Meds if any: Prescribed or Continued at Discharge Note: Overlap Therapy is Warfarin and Anticoagulant Meds if any: NOT Prescribed or Continued at Discharge
[2017-11-22 15:06] VITALS: BP 124/68
[2017-11-22 21:58] VITALS: BP 110/60
[2017-11-23 06:43] VITALS: BP 120/68
--- NOTE | 2017-11-23 07:42 | PN- Student ---
Arnaud Mahan 11/23/17 0731: Subjective Subjective: Tolerating diet, cramping after eating, no nausea, no vomiting. No abdominal pain. passing gas, small watery bowel movements. low appetite. OOB frequently. Making urine. No chest pain, no calf pain, no shortness of breath. Objective Objective: Vitals: Temp: 99.3 Pulse Rate: 69 Respiratory rate: 20 BP: 120/68 Pulse Ox: 97 room air I/O's: I: 120 oral 8hr/ 1220 oral 24 hr O: not recorded Imaging: none Physical Exam: General: No acute distress, alert and oriented Pulm: clear to auscultation bilaterally Cardio: s1,s2, RRR Abdomen: Soft, mild distention, + bowel sonds, mild tenderness right upper quadriant and phoebe-inscional. Steri's and michelle in place with mild serosanguinous discharge. Extremities: calves soft and nontender bilaterally. Results Results: Laboratory Tests 11/22/17 0635: Anion Gap 7, Estimated GFR > 60, BUN/Creatinine Ratio 10.0, Phosphorus 1.9 L, Magnesium 2.1 11/21/17 0642: Anion Gap 5, Estimated GFR > 60, BUN/Creatinine Ratio 14.0, Phosphorus 1.2 L, Magnesium 2.1, CBC w Diff NO MAN DIFF REQ, RBC 3.91 L, MCV 82.5, MCH 27.4, MCHC 33.2, RDW 13.9, MPV 7.5, Gran % 76.4 H, Lymphocytes % 16.0 L, Monocytes % 7.3, Eosinophils % 0.1, Basophils % 0.2, Absolute Granulocytes 7.1 H, Absolute Lymphocytes 1.5, Absolute Monocytes 0.7 H, Absolute Eosinophils 0, Absolute Basophils 0 11/20/17 0814: Anion Gap 6, Estimated GFR > 60, BUN/Creatinine Ratio 16.7, Phosphorus 1.8 L, Magnesium 1.9, CBC w Diff NO MAN DIFF REQ, RBC 4.31, MCV 81.9, MCH 27.3, MCHC 33.3, RDW 13.5, MPV 7.7, Gran % 79.0 H, Lymphocytes % 11.0 L, Monocytes % 10.0 H, Eosinophils % 0, Basophils % 0, Absolute Granulocytes 10.9 H, Absolute Lymphocytes 1.5, Absolute Monocytes 1.4 H, Absolute Eosinophils 0, Absolute Basophils 0 Assessment/Plan Assessment: 62 year old female Hospital day 5 SBO and POD 4 laproscopic ysis of adhesions and open small bowel resection. Doing well with improve pain, tolerating diet and passing bowel movements and flatus. Plan: Plan for DC continue diet continue home meds Change pain meds to oral for discharge Heparin for DVT prophylaxis encourage OOB Zofran Prn nausea discuss with preceptor Jesús Danielson 11/23/17 0744: Resident Review Statement Resident Statement: examined this patient, amended to note Other Findings: agree w above. still with mild distention, minimal cramping pain. tolerating diet. pt feels well enough to go home. diet restrictions discussed. stable for DC home.
--- NOTE | 2017-11-23 12:11 | Surgical Discharge Summary ---
Visit Information Visit Dates Admission Date: 11/18/17 Discharge Date: 11/23/17 History of Present Illness Chief Complaint: abdominal pain Medical History Neurological: NONE EENT: NONE Cardiovascular: NONE Respiratory: NONE Gastrointestinal: NONE Hepatic: NONE Renal: NONE Musculoskeletal: osteoporosis Psychiatric: NONE Endocrine: NONE Blood Disorders: NONE Cancer(s): NONE [employer]IAN/Reproductive: NONE History of MRSA: No History of VRE: No History of CDIFF: No Isolation History: Standard Surgical History Pertinent Surgical History: appendectomy, open endometrial ablation with oophorectomy, small bowel resection Psychosocial History Where Do You Live? Home Who Do You Live With? Spouse What is Your Primary Language? Korean ETOH Use: occasional use Review of Systems: see preop hp Hospital Course Course Attending Physician: Rajesh Orellana MD Primary Care Physician: Echo Hurst DO [place] [facility] Course: Admitted for bowel rest, ng decompression for intestinal obstruction. Within 12 hours of admission, symptoms worsening and worsened leukocytosis. She was taken for lapaorscopic exploration. Bowel resection perfomed for strangulated internal hernia. Post operatively she did well. bowel function returned and diet advancee. Allergies: Coded Allergies: No Known Allergies (11/18/17) Significant Procedures: laparoscopic lysis adhesions and open small bowel resection. Disposition Summary Disposition Principal Diagnosis: Intestinal obstruction Additional Diagnosis: none Discharge Disposition: home or self care Discharge Instructions General Discharge Information Code Status: Full Code Patient's Diet: low fiber Patient's Activity: no lifting >20lbs Follow-Up Instructions/Appts: 2 weeks Medications at Discharge Discharge Medications: Continue taking these medications: Alendronate Sodium (Alendronate Sodium) 70 MG TABLET 1 Tablet ORAL EVERY MONDAY Qty = 4 Instructions: in the morning, at least 30 minutes before the first food, beverage, or medication of the day Comments: NOT GIVEN IN HOSPITAL Calcium Carbonate/Vitamin D3 (Calcium 500 + D Tablet) (Unknown Strength) TABLET Unknown Dose ORAL DAILY Comments: NOT GIVEN IN HOSPITAL Copies To: Echo Hurst DO
== END 2017-11-23 12:34 | DRG 329 ==
LOC: ERH 16:14 → 2NA 19:34 → ERHI 19:34 → ENTRNSPT 21:37 → ENRESERV 21:46 → EDTRNSPTSTS 22:05 → 2NA 22:11 → CMPTRNSPT 22:54 → ENTRNSPT 11-19 12:17 → EDTRNSPTSTS 11-19 12:20 → CMPTRNSPT 11-19 12:50 → 2NA 11-21 20:03 → ENPENDDIS 11-23 07:53 → 2NA 11-23 12:34
PROVIDERS: Nurse Practitioner; Physician Assistant; Physician Assistant Surgical
PROC: 0DN84ZZ Release Small Intestine, Percutaneous Endoscopic Approach (ICD-10-PCS; principal; 2017-11-19)
PROC: 0DBB0ZZ Excision of Ileum, Open Approach (ICD-10-PCS; 2017-11-19)
DX: K56.609 Unspecified intestinal obstruction, unspecified as to partial versus complete obstruction (principal); K55.021 Focal (segmental) acute infarction of small intestine; E87.2 Acidosis; M81.0 Age-related osteoporosis without current pathological fracture; E86.0 Dehydration; K56.50 Intestinal adhesions [bands], unspecified as to partial versus complete obstruction; Z53.31 Laparoscopic surgical procedure converted to open procedure
CPT/HCPCS: 2NASP; 36592; 74177; 82436; 93005; 93010; 96374; 96375; 96376; J0131; J1100; J1644; J2405; J3490; J7042